=== PATIENT | female | born 1955 | race Caucasian/White ===

== ENCOUNTER → 2018-10-16 | Outpatient (CLI) | payer MEDICARE ==
[~2018-10-16] MED LIST: LEVO500T2 PO; LEVO75TA7 PO; METR500T PO; SPIR25TA PO
[2018-10-16 12:31] LABS: ALANINE AMINOTRANSFERASE 457 U/L (12-78); ALBUMIN 3.5 G/DL (3.4-5.0); ALBUMIN/GLOBULIN RATIO 0.8 (1.1-1.5); ALKALINE PHOSPHATASE 331 IU/L (46-116); ANION GAP 8 (8-16); ASPARTATE AMINO TRANSFERASE 363 U/L (10-37); BILIRUBIN,TOTAL 2.8 MG/DL (0.1-1.0); BLOOD UREA NITROGEN 13 MG/DL (7-18); BUN/CREATININE RATIO 16.7 (6.6-38.0); CALCIUM 9.4 MG/DL (8.5-10.1); CHLORIDE 98 MMOL/L (99-107); CREATININE 0.78 MG/DL (0.40-0.90); GLUCOSE 97 MG/DL (70-104); POTASSIUM 3.9 MMOL/L (3.5-5.1); SODIUM 135 MMOL/L (135-145); TOTAL CARBON DIOXIDE 29.2 MMOL/L (24-32); eGFR 74 ML/MIN
== END | disposition home or self-care (01) ==
LOC: LAB 11:21
PROVIDERS: ATTEND Surgery
DX: K81.2 Acute cholecystitis with chronic cholecystitis (principal); R82.998 Other abnormal findings in urine; Z87.891 Personal history of nicotine dependence
CPT/HCPCS: 36415; 80053

== ENCOUNTER 2018-10-17 10:17 | Observation (INO) | payer MEDICARE ==
[~2018-10-17] VITALS: Ht 157.5 cm; Wt 67.0 kg
[2018-10-17] VITALS (14 sets, daily range): BP systolic 102–151; BP diastolic 53–78
[2018-10-17] MEDS ORDERED: HYDROmorphone 1 mg/ml syringe IV ONE (11:20)
[2018-10-17] MEDS ORDERED: normal saline 1000ML IV soln IVB ONE (11:20)
[2018-10-17] MEDS ORDERED: ondansetron/PF 4mg/2ml inj IV ONE (11:20)
[2018-10-17 11:29] LABS: BASOPHILS % (AUTO) 0.4 % (0-1); EOSINOPHILS # (AUTO) 0.2 X10'3 (0-0.9); EOSINOPHILS % (AUTO) 1.7 % (0-6); HEMATOCRIT 39.1 % (35.0-45.0); HEMOGLOBIN 13.3 g/dl (12.0-16.0); LYMPHOCYTES # (AUTO) 2.1 X10'3 (1.1-4.8); LYMPHOCYTES % (AUTO) 19.3 % (21-51); MEAN CORPUSCULAR HGB CONC 34.1 % (33.0-36.5); MEAN CORPUSCULAR VOLUME 96.9 FL (78-98); MEAN PLATELET VOLUME 7.8 FL (7.4-10.4); MONOCYTES # (AUTO) 0.8 X10'3 (0-0.9); NEUTROPHILS # (AUTO) 7.5 X10'3 (1.8-7.7); NEUTROPHILS % (AUTO) 70.6 % (42-75); PLATELET COUNT 296 X10'3 (140-440); RED BLOOD COUNT 4.03 X10'6 (4.20-5.60); RED CELL DISTRIBUTION WIDTH 12.6 % (11.5-14.5); WHITE BLOOD COUNT 10.6 X10'3 (4.5-11.0)
[2018-10-17 11:46] LABS: ALANINE AMINOTRANSFERASE 296 U/L (12-78); ALBUMIN 3.4 G/DL (3.4-5.0); ALBUMIN/GLOBULIN RATIO 0.8 (1.1-1.5); ALKALINE PHOSPHATASE 293 IU/L (46-116); ANION GAP 10 (8-16); ASPARTATE AMINO TRANSFERASE 131 U/L (10-37); BILIRUBIN,TOTAL 1.1 MG/DL (0.1-1.0); BLOOD UREA NITROGEN 13 MG/DL (7-18); BUN/CREATININE RATIO 16.9 (6.6-38.0); CALCIUM 9.2 MG/DL (8.5-10.1); CHLORIDE 94 MMOL/L (99-107); CREATININE 0.77 MG/DL (0.40-0.90); GLUCOSE 78 MG/DL (70-104); LIPASE 113 U/L (73-393); POTASSIUM 3.9 MMOL/L (3.5-5.1); SODIUM 131 MMOL/L (135-145); TOTAL CARBON DIOXIDE 27.2 MMOL/L (24-32); TOTAL PROTEIN 7.9 G/DL (6.4-8.2); eGFR 75 ML/MIN
--- NOTE | 2018-10-17 12:05 | NUR ---
intermittent pain. pt refused pain meds at this time. no nausea noted.
[2018-10-17] MEDS ORDERED: fentaNYL/PF 50MCG/1 ML 2ML syringe ONE (12:22)
[2018-10-17] MEDS ORDERED: meperidine/PF 100mg/ml syringe ONE (12:22)
[2018-10-17] MEDS ORDERED: diphenhydrAMINE 50 mg/ml inj ONE (12:23)
[2018-10-17] MEDS ORDERED: levoFLOXACIN-Levaquin 500mg/D5 100 ML IV ONE (12:23)
[2018-10-17] MEDS ORDERED: LIDOcaine Viscous 15ml cup ONE (12:23)
[2018-10-17] MEDS ORDERED: MIDAZolam 5mg/5ml vial ONE (12:23)
[2018-10-17] MEDS ORDERED: iohexol 300 MG/1 ML 50ml polymer ONE (12:24)
[2018-10-17] MEDS ORDERED: glucagon, human recombinant 1mg kit ONE (12:24)
[2018-10-17] MEDS ORDERED: magnesium 2GM in 50ml NS 50 ML IV PRN (16:30)
[2018-10-17] MEDS ORDERED: magnesium 4gm in 100ml NS 100 ML IV PRN (16:30)
[2018-10-17] MEDS ORDERED: potassium Cl 40MEQ/NS 500ml 500 ML IV PRN ×2 (16:30)
[2018-10-17] MEDS ORDERED: mag hydrox/Alum hydrox/simeth 30ml oral suspension PO PRN (16:30)
[2018-10-17] MEDS ORDERED: HYDROcodone/acetaminophen 5mg/325mg tablet PO PRN (16:30)
[2018-10-17] MEDS ORDERED: magnesium Cl slow-release 64mg tablet PO PRN (16:30)
[2018-10-17] MEDS ORDERED: ondansetron/PF 4mg/2ml inj IV PRN (16:30)
[2018-10-17] MEDS ORDERED: acetaminophen 325mg tablet PO PRN ×2 (16:30)
[2018-10-17] MEDS ORDERED: potassium Cl 20 mEq SR tablet PO PRN ×2 (16:30)
[2018-10-17] MEDS ORDERED: morphine 4 MG/ML inj SYRINge IV PRN (16:30)
[2018-10-17] MEDS ORDERED: magnesium hydroxide 30ml (MOM) UD suspension PO PRN (16:30)
[2018-10-17] MEDS: normal saline 1000ml 1,000 ML IV SCH (17:02)
[2018-10-17] MEDS: piperacillin/tazo 3.375gm/50ml 50 ML IV SCH (17:02)
[2018-10-17] MEDS: heparin, porcine 5000 units/ml vial SQ SCH (20:12)
[2018-10-17] MEDS ORDERED: temazepam 15mg capsule PO PRN (21:00)
--- NOTE | 2018-10-17 21:00 | NUR ---
Patient in room [facility]. I have received report from Rosalinda in the er and had the opportunity to ask questions and assume patient care.
--- NOTE | 2018-10-17 21:15 | NUR ---
pt arrived to the floor with her belongings and assisted into bed and tolerated well. vitals done and pt set up and assessed denies c/o pain at this time.
--- NOTE | 2018-10-17 23:00 | NUR ---
completed pt darting and pt with ear plugs and set up to void in hat. no complaints at this time.
[2018-10-18 00:10] VITALS: BP 116/58
[2018-10-18] MEDS: piperacillin/tazo 3.375gm/50ml 50 ML IV SCH ×2 (00:16→08:02)
--- NOTE | 2018-10-18 00:25 | NUR ---
resting eyes closed awoke briefly to scan her abx for her.
--- NOTE | 2018-10-18 02:18 | NUR ---
resting on her side eyes closed no s&s of distress at this time.
--- NOTE | 2018-10-18 03:46 | NUR ---
resting without changes at this time.
[2018-10-18 03:55] VITALS: BP 109/53
--- NOTE | 2018-10-18 05:00 | NUR ---
pt awake denies c/o pain no s&s of distress.
[2018-10-18 05:29] LABS: BASOPHILS % (AUTO) 0.3 % (0-1); EOSINOPHILS # (AUTO) 0.2 X10'3 (0-0.9); EOSINOPHILS % (AUTO) 2.2 % (0-6); HEMATOCRIT 35.9 % (35.0-45.0); HEMOGLOBIN 12.2 g/dl (12.0-16.0); LYMPHOCYTES # (AUTO) 2.1 X10'3 (1.1-4.8); LYMPHOCYTES % (AUTO) 29.3 % (21-51); MEAN CORPUSCULAR HEMOGLOBIN 32.9 PG (27.0-31.0); MEAN CORPUSCULAR HGB CONC 33.9 % (33.0-36.5); MEAN CORPUSCULAR VOLUME 97.1 FL (78-98); MEAN PLATELET VOLUME 8.6 FL (7.4-10.4); MONOCYTES # (AUTO) 0.4 X10'3 (0-0.9); NEUTROPHILS # (AUTO) 4.4 X10'3 (1.8-7.7); NEUTROPHILS % (AUTO) 62.2 % (42-75); PLATELET COUNT 249 X10'3 (140-440); RED CELL DISTRIBUTION WIDTH 12.6 % (11.5-14.5)
[2018-10-18 05:54] LABS: ALANINE AMINOTRANSFERASE 174 U/L (12-78); ALBUMIN 2.7 G/DL (3.4-5.0); ALBUMIN/GLOBULIN RATIO 0.8 (1.1-1.5); ALKALINE PHOSPHATASE 220 IU/L (46-116); ANION GAP 13 (8-16); ASPARTATE AMINO TRANSFERASE 54 U/L (10-37); BILIRUBIN,TOTAL 0.8 MG/DL (0.1-1.0); BLOOD UREA NITROGEN 8 MG/DL (7-18); BUN/CREATININE RATIO 10.8 (6.6-38.0); CHLORIDE 104 MMOL/L (99-107); CREATININE 0.74 MG/DL (0.40-0.90); GLUCOSE 85 MG/DL (70-104); MAGNESIUM 1.6 MG/DL (1.5-2.4); POTASSIUM 3.5 MMOL/L (3.5-5.1); SODIUM 140 MMOL/L (135-145); TOTAL PROTEIN 6.3 G/DL (6.4-8.2); eGFR 79 ML/MIN
--- NOTE | 2018-10-18 06:35 | NUR ---
Patient in room [facility]. I have received report from YASMANY Correa and had the opportunity to ask questions and assume patient care.
--- NOTE | 2018-10-18 06:41 | NUR ---
Problems reprioritized. Patient report given, questions answered & plan of care reviewed with Veena Chau. Addendum: 10/18/18 at 0641 by Madeline Gregory RN Amended: Links added.
[2018-10-18 07:00] VITALS: BP 123/62
[2018-10-18] MEDS ORDERED: levoTHYROXINE 75mcg tablet PO SCH (07:00)
[2018-10-18] MEDS ORDERED: K and/or MAG REPLACEMENT MC SCH (08:00)
[2018-10-18] MEDS ORDERED: spironolactone 25 MG tablet PO SCH (08:00)
[2018-10-18] MEDS: heparin, porcine 5000 units/ml vial SQ SCH (08:02)
[2018-10-18 11:00] VITALS: BP 116/62
--- NOTE | 2018-10-18 12:06 | NUR ---
Malnutrition Consult: Pt admit w/ abdominal pain, yellow stool, orange urine s/p recent cholecystectomy. S/p ERCP w/ biliary stent placement. LBM 10/18 advance to clear liquid diet w/ PO pending. Pt has normal strength w/ no edema present and BMI 27. Only decreased PO past week r/t abdominal symptoms. At this time lacks minimum 2 indicators for malnutrition; will monitor for additional criteria this admit. Addendum: 10/18/18 at [address] Amended: Links added.
[2018-10-18] MEDS ORDERED: SPIR25TA PO (12:21)
[2018-10-18] MEDS ORDERED: METR500T PO (12:21)
[2018-10-18] MEDS ORDERED: LEVO75TA7 PO (12:21)
[2018-10-18] MEDS ORDERED: LEVO500T2 PO (12:21)
[2018-10-18] MEDS: normal saline 1000ml 1,000 ML IV SCH (12:28)
--- NOTE | 2018-10-18 14:00 | NUR ---
Patient discharged home via spouse. Patient taken from unit via wheelchair with x1 staff. Patient tele monitor discontinued and PIV removed with cannula intact. Patient took all belongings including discharge instructions. Patient and spouse stated an understanding of discharge instructions. Patient was encouraged to follow up with Dr. Hill to get the stent removed in 2-3 weeks. Patient alert and oriented and in no apparent distress at this time. Prescriptions were called in to [facility] in [place].
== END 2018-10-18 14:00 | disposition home or self-care (01) ==
LOC: ER 10:18 → ED HOLD 16:28 → SUR 3N 21:17
PROVIDERS: ADMIT Internal Medicine; ATTEND Internal Medicine
DX: K80.50 Calculus of bile duct without cholangitis or cholecystitis without obstruction (principal); I10 Essential (primary) hypertension; E78.5 Hyperlipidemia, unspecified; E03.9 Hypothyroidism, unspecified; N28.1 Cyst of kidney, acquired; R94.5 Abnormal results of liver function studies; Z90.49 Acquired absence of other specified parts of digestive tract
CPT/HCPCS: 36415; 43274; 74176; 80053; 83690; 83735; 85025; 87070; 96361; 96365; 96366; 96372; 99284; G0378; J1170; J1200; J1610; J1644; J1956; J2175; J2250; J2405; J2543; J3010; J7030; Q9967; 99152; 99153; A4620